=== PATIENT | female | born 1980 | race American Indian/Alaskan Native ===

== ENCOUNTER 2020-11-16 07:03 | Emergency (ER) | payer SELFPAY ==
[2020-11-16] MEDS ORDERED: KETOROLAC 30 MG/1 ML INJ IV ONE (07:08)
--- NOTE | 2020-11-16 07:22 | Emergency Department Report ---
ED Seizure HPI - General Stated Complaint: POSS SZ Time Seen by Provider: 11/16/20 07:08 - History of Present Illness Initial Comments: Patient was brought in by EMS for possible seizure. She states that she really does not recall anything. She remembers going to bed last night. She does not remember getting up this morning. She does not remember EMS coming to get her. She does not remember the ambulance ride over here. She states that she is cu rrently having a headache. She states that she has had seizures before. She had been seen by neurology. EEG was obtained. There is no known seizure focus. She was never started on medication. She is not really sure if she had a seizure today or not. There has been no recent travel or trauma. She has had no cough or congestion. She does not feel ill. EMS states that they were called because the patient thinks that she might of had a seizure. There was no seizure activity witnessed by any family members at home. - Related Data Allergies Allergy/AdvReac Type Severity Reaction Status Date / Time iodine Allergy Anaphylaxis Verified 11/16/20 07:26 sulfamethoxazole Allergy Unknown Verified 11/16/20 07:26 [From Bactrim] trimethoprim [From Bactrim] Allergy Unknown Verified 11/16/20 07:26 ED Review of Systems ROS: Stated complaint: POSS SZ Other details as noted in HPI Comment: All other systems reviewed and negative Constitutional: denies: fever Eyes: denies: eye pain, vision change Respiratory: denies: cough Cardiovascular: denies: chest pain Endocrine: denies: unexplained weight loss Gastrointestinal: denies: abdominal pain Genitourinary: denies: dysuria Musculoskeletal: denies: back pain Neurological: as per HPI, headache Psychiatric: anxiety (Chronically) Hematological/Lymphatic: denies: easy bruising ED Past Medical Hx - Past Medical History Previous Medical History?: Yes Additional medical history: Anxiety and seizure - Family History Family history: other (Negative for seizure) ED Physical Exam - General Limitations: No Limitations, Other (Pulse ox was noted and normal. Is not hypoxic.) General appearance: alert, in no apparent distress - Head Head exam: Present: atraumatic, normocephalic, normal inspection - Eye Eye exam: Present: normal appearance, PERRL, EOMI. Absent: scleral icterus - ENT ENT exam: Present: normal orophraynx, normal external ear exam - Neck Neck exam: Present: normal inspection. Absent: meningismus - Respiratory Respiratory exam: Present: normal lung sounds bilaterally. Absent: respiratory distress - Cardiovascular Cardiovascular Exam: Present: regular rate, normal rhythm - GI/Abdominal GI/Abdominal exam: Present: soft. Absent: distended, tenderness - Extremities Exam Extremities exam: Present: normal capillary refill. Absent: joint swelling - Back Exam Back exam: Absent: CVA tenderness (R), CVA tenderness (L) - Neurological Exam Neurological exam: Present: alert, oriented X3, CN II-XII intact, normal gait, r eflexes normal. Absent: motor sensory deficit - Psychiatric Psychiatric exam: Present: normal affect, normal mood - Skin Skin exam: Present: warm, dry ED Course Vital Signs 11/16/20 11/16/20 11/16/20 07:18 08:48 10:36 Temperature 97.9 F Pulse Rate 87 80 88 Respiratory 19 19 19 Rate Blood Pressure 134/88 Blood Pressure 124/89 121/88 [Left] O2 Sat by Pulse 100 99 99 Oximetry - Reevaluation(s) Reevaluation #1: 11/16/20 07:15 EMS was met. Labs ordered. Reevaluation #2: 11/16/20 08:53 Labs are pending. Reevaluation #3: 11/16/20 10:59 Labs are noted and the patient was discharged. ED Medical Decision Making - Lab Data Result diagrams: 11/16/20 08:53 - Medical Decision Making Patient presented for possible seizure. At this time, there has been no seizure activity noted. She has not been on medication. She has had an outpatient work-up including EEG. I do not believe she needs inpatient work-up at this time. I do believe repeat evaluation as an outpatient would be appropriate. She is amenable to this. We have discussed lifestyle changes due to the fact that this could have been a seizure which would include limiting driving as well as swimming without any kind of supervision. She does not have any focal neurologic deficit at this time. I do not believe any imaging is warranted. Critical Care Time: No Critical care attestation.: If time is entered above; I have spent that time in minutes in the direct care of this critically ill patient, excluding procedure time. ED Disposition Clinical Impression: Transient alteration of awareness Disposition: 01 HOME / SELF CARE / HOMELESS Is pt being admited?: No Condition: Stable Instructions: Seizure, Adult Additional Instructions: Drink plenty water. Return for problems. Follow-up with your regular doctor for recheck and further management. Do not drive until released by a regular doctor. Referrals: PRIMARY CARE, [Primary Care Provider] - 3-5 Days ИВАН SIERRA MD [Staff Physician] - 3-5 Days
[2020-11-16] MEDS ORDERED: ADENOSINE 6 MG/2 ML INJ ONE (08:15)
[2020-11-16 08:38] LABS: BUN/Creatinine Ratio TNR; Blood Urea Nitrogen TNR mg/dL (7-17); Calcium TNR mg/dL (8.4-10.2); Hemolysis Index TNR
--- NOTE | 2020-11-16 08:40 | XRay Report ---
CHEST 2 VIEWS INDICATION: cough. COMPARISON: None FINDINGS: Support devices: None. Heart: Within normal limits. Lungs/pleura: No acute air space or interstitial disease. No pneumothorax. Additional findings: None. IMPRESSION: No acute findings. Signer Name: Bonifacio Pike Jr, MD Signed: 11/16/2020 8:36 AM Workstation Name: [id number]
[2020-11-16 09:50] LABS: Blood Urea Nitrogen 7 mg/dL (7-17); Calcium 9.4 mg/dL (8.4-10.2); Hemolysis Index 3
[2020-11-16 10:10] LABS: BUN/Creatinine Ratio 14
[2020-11-16 10:36] VITALS: BP 121/88
== END 2020-11-16 10:36 | disposition home or self-care (01) ==
LOC: ED 07:03
DX: R40.4 Transient alteration of awareness (principal); R56.9 Unspecified convulsions; R51.9 Headache, unspecified; F41.9 Anxiety disorder, unspecified; Z79.899 Other long term (current) drug therapy
CPT/HCPCS: 36415; 71046; 80048; 96374; 99284; J1885; J0153

== ENCOUNTER 2020-12-22 21:15 | Emergency (ER) | payer MEDICAID ==
[2020-12-22] MEDS ORDERED: ACETAMINOPHEN 500 MG TAB PO ONE (22:35)
[2020-12-22 23:54] LABS: Alanine Aminotransferase 7 units/L (7-56); Albumin 4.3 g/dL (3.9-5); Blood Urea Nitrogen 6 mg/dL (7-17); Calcium 8.4 mg/dL (8.4-10.2); Hemolysis Index 7
[2020-12-22 23:57] LABS: BUN/Creatinine Ratio 12
[2020-12-23 00:01] LABS: Basophils # (Auto) 0.1 K/mm3 (0.0-0.1); Basophils % (Auto) 0.7 % (0.0-1.8); Eosinophils # (Auto) 0.1 K/mm3 (0.0-0.4); Eosinophils % (Auto) 1.3 % (0.0-4.3); Hemoglobin 12.4 gm/dl (10.1-14.3); Lymphocytes # (Auto) 2.2 K/mm3 (1.2-5.4); Lymphocytes % (Auto) 30.6 % (13.4-35.0); Mean Corpuscular HGB Conc 34 % (30-34); Mean Corpuscular Volume 95 fl (79-97); Monocytes # (Auto) 0.5 K/mm3 (0.0-0.8); Monocytes % (Auto) 6.4 % (0.0-7.3); Platelet Count 274 K/mm3 (140-440); Red Blood Count 3.88 M/mm3 (3.65-5.03); Red Cell Distribution Width 12.9 % (13.2-15.2)
--- NOTE | 2020-12-23 00:41 | XRay Report ---
CHEST 2 VIEWS INDICATION / CLINICAL INFORMATION: Pain - chest. COMPARISON: 11/16/20 FINDINGS: SUPPORT DEVICES: None. HEART / MEDIASTINUM: No significant abnormality. LUNGS / PLEURA: No significant pulmonary or pleural abnormality. No pneumothorax. ADDITIONAL FINDINGS: No significant additional findings. IMPRESSION: 1. No acute findings. No change. Signer Name: Bobby Braden MD Signed: 12/23/2020 12:37 AM Workstation Name: [id number]
[2020-12-23 01:00] LABS: Bilirubin,Urine NEG (Negative); Blood,Urine MOD (Negative); Color,Urine Yellow (Yellow); Mucus,Urine 3+ /HPF
--- NOTE | 2020-12-23 01:52 | Emergency Department Report ---
ED Abdominal Pain HPI - General Chief Complaint: Abdominal Pain Stated Complaint: ABDOMINAL PAIN/CHEST PAIN Source: patient Mode of arrival: Ambulatory Limitations: No Limitations - History of Present Illness Initial Comments: Patient is a [id number] 40-year-old -[place] female with a history of anxiety and depression and seizures who present to the ED with complaint of ac bois forte onset persistent diffuse low abdominal pain, heavy vaginal bleeding for the last 2 months. Patient states that the pain in the lower abdomen also radiates to her low back and causes chest pressure especially in the last 4 days. Patient states that her cycle usually lasts 5 days but it has been persistent for the last 2 months, with occasional heaviness whereby she has to use multiple pads. Patient states that she is not on any control. Patient denies dizziness, syncope, shortness of breath, vaginal discharge, urinary frequency and urgency, dysuria, nausea and vomiting or diarrhea, low back pain, numbness and tingling or weakness of upper and lower extremities bilaterally or change in vision and headache. MD Complaint: abdominal pain, other (Heavy vaginal bleeding) -: Gradual, month(s) (2) Location: diffuse Radiation: none Migration to: no migration Severity: severe Severity scale (0 -10): 10 Quality: cramping, aching, sharp Consistency: constant Improves With: nothing Worsens With: movement Context: other (Heavy vaginal bleeding for 2 months) Associated Symptoms: denies other symptoms - Related Data LMP (females 10-50): 2 months Previous Rx's Medication Instructions Recorded Last Taken Type Famotidine [Pepcid] 20 mg PO BID #60 tablet 12/23/20 Unknown Rx Ibuprofen [Motrin] 800 mg PO Q8HR PRN #30 tablet 12/23/20 Unknown Rx Ondansetron [Zofran Odt] 4 mg PO Q6HR PRN #15 tab.rapdis 12/23/20 Unknown Rx medroxyPROGESTERone ACETATE 10 mg PO DAILY #10 tablet 12/23/20 Unknown Rx [Provera] Allergies Allergy/AdvReac Type Severity Reaction Status Date / Time iodine Allergy Anaphylaxis Verified 11/16/20 07:26 sulfamethoxazole Allergy Unknown Verified 11/16/20 07:26 [From Bactrim] trimethoprim [From Bactrim] Allergy Unknown Verified 11/16/20 07:26 ED Review of Systems ROS: Stated complaint: ABDOMINAL PAIN/CHEST PAIN Other details as noted in HPI Constitutional: denies: chills, fever Eyes: denies: eye pain, eye discharge, vision change ENT: denies: ear pain, throat pain Respiratory: denies: cough, shortness of breath, wheezing Cardiovascular: denies: chest pain, palpitations Endocrine: no symptoms reported Gastrointestinal: abdominal pain. denies: nausea, vomiting, diarrhea Genitourinary: abnormal menses (Vaginal bleeding). denies: urgency, dysuria, discharge Musculoskeletal: back pain (Low back pain). denies: joint swelling, arthralgia Skin: denies: rash, lesions Neurological: denies: headache, weakness, paresthesias Psychiatric: denies: anxiety, depression Hematological/Lymphatic: denies: easy bleeding, easy bruising ED Past Medical Hx - Past Medical History Previous Medical History?: Yes Additional medical history: Anxiety and seizure - Surgical History Past Surgical History?: No - Social History Smoking Status: Never Smoker Substance Use Type: None - Medications Home Medications: Home Medications Medication Instructions Recorded Confirmed Last Taken Type Famotidine [Pepcid] 20 mg PO BID #60 tablet 12/23/20 Unknown Rx Ibuprofen [Motrin] 800 mg PO Q8HR PRN #30 tablet 12/23/20 Unknown Rx Ondansetron [Zofran Odt] 4 mg PO Q6HR PRN #15 tab.rapdis 12/23/20 Unknown Rx medroxyPROGESTERone ACETATE 10 mg PO DAILY #10 tablet 12/23/20 Unknown Rx [Provera] ED Physical Exam - General Limitations: No Limitations General appearance: alert, in no apparent distress - Head Head exam: Present: atraumatic, normocephalic, normal inspection - Eye Eye exam: Present: normal appearance, PERRL, EOMI Pupils: Present: normal accommodation - ENT ENT exam: Present: normal exam, normal orophraynx, mucous membranes moist, TM's normal bilaterally, normal external ear exam - Neck Neck exam: Present: normal inspection, full ROM - Respiratory Respiratory exam: Present: normal lung sounds bilaterally. Absent: respiratory distress, wheezes, rales, rhonchi, chest wall tenderness, accessory muscle use, decreased breath sounds - Cardiovascular Cardiovascular Exam: Present: regular rate, normal rhythm, normal heart sounds. Absent: systolic murmur, diastolic murmur, rubs, gallop - GI/Abdominal GI/Abdominal exam: Present: soft, tenderness (Palpable diffuse mild abdominal tenderness), normal bowel sounds. Absent: guarding, rebound, hyperactive bowel sounds, hypoactive bowel sounds, mass - Bi-manual exam: Present: other (Pelvic exam deferred at this time) - Extremities Exam Extremities exam: Present: normal inspection, full ROM, normal capillary refill - Back Exam Back exam: Present: normal inspection, full ROM. Absent: tenderness, CVA tenderness (R), CVA tenderness (L), muscle spasm, paraspinal tenderness, vertebral tenderness - Neurological Exam Neurological exam: Present: alert, oriented X3, CN II-XII intact, normal gait, reflexes normal - Psychiatric Psychiatric exam: Present: normal affect, normal mood - Skin Skin exam: Present: warm, dry, intact, normal color. Absent: rash ED Course Vital Signs 12/22/20 12/22/20 22:25 23:28 Temperature 98.3 F Pulse Rate 82 Respiratory 14 18 Rate Blood Pressure 107/61 O2 Sat by Pulse 99 Oximetry ED Medical Decision Making - Lab Data Result diagrams: 12/22/20 22:57 12/22/20 22:57 - Radiology Data Radiology results: report reviewed, [place] [address] XRay Report Signed Patient: JG GALVAN MR#: [id number] : 1980 Acct:[id number] Age/Sex: 40 / F ADM Date: 12/22/20 Loc: ED Attending Dr: Ordering Physician: ANDREIA TOWNSEND Date of Service: 12/22/20 Procedure(s): XR chest routine 2V Accession Number(s): [id number] cc: ANDREIA TOWNSEND Fluoro Time In Minutes: CHEST 2 VIEWS INDICATION / CLINICAL INFORMATION: Pain - chest. COMPARISON: 11/16/20 FINDINGS: SUPPORT DEVICES: None. HEART / MEDIASTINUM: No significant abnormality. LUNGS / PLEURA: No significant pulmonary or pleural abnormality. No pneumothorax. ADDITIONAL FINDINGS: No significant additional findings. IMPRESSION: 1. No acute findings. No change. Signer Name: Bobby Braden MD Signed: 12/23/2020 12:37 AM Workstation Name: [id number] Transcribed By: DT Dictated By: Bobby Braden MD Electronically Authenticated By: Bobby Braden MD Signed Date/Time: 12/23/2036 DD/ TD/TT: - Medical Decision Making This is a [id number] 40-year-old -[place] female with a history of anxiety and depression and seizures who present to the ED with complaint of acute onset persistent diffuse low abdominal pain, heavy vaginal bleeding for the last 2 months. Patient states that the pain in the lower abdomen also radiates to her low back and causes chest pressure especially in the last 4 days. Patient states that her cycle usually lasts 5 days but it has been persistent for the last 2 months, with occasional heaviness whereby she has to use multiple pads. Patient states that she is not on any control. In the ED, patient is alert and oriented x3 and is not in any distress. Patient is hemodynamically stable. Chest x-ray showed no acute cardiopulmonary abnormalities or pn eumonitis. Lab test results were reviewed and are all nonactionable. Patient was treated with for pain with Tylenol in the ED. On reevaluation, patient felt better, patient was discharged home on pain medications, antiemetics as well as antacids and also given a prescription of medroxyprogesterone 10 mg to be taken once a day for 10 days. Patient was advised to follow-up with the [facility] physician Dr. Saint Muller in 3 to 5 days for reevaluation. Patient is advised return to the ED immediately if symptoms get worse. - Differential Diagnosis UTI; dysmenorrhea; menometrorrhagia; ovarian cyst; GERD; Critical care attestation.: If time is entered above; I have spent that time in minutes in the direct care of this critically ill patient, excluding procedure time. ED Disposition Clinical Impression: Severe dysmenorrhea, Menorrhagia with irregular cycle Abdominal pain Qualifiers: Abdominal location: lower abdomen, unspecified Qualified Code(s): R10.30 - Lower abdominal pain, unspecified Disposition: 01 HOME / SELF CARE / HOMELESS Is pt being admited?: No Does the pt Need Aspirin: No Condition: Stable Instructions: Abdominal Pain (ED), Abdominal Pain, Adult, [id number], Menorrhagia, [id number], Dysmenorrhea, [id number], Abnormal Uterine Bleeding, [id number] Additional Instructions: All lab test results were reviewed and are all nonactionable. Your symptoms are likely due to menstrual cramps. Therefore take medications with food, drink plenty fluids and follow-up with the [facility] physician Dr. Saint Muller in 3 to 5 days for reevaluation. Return to the ED immediately if symptoms get worse. Prescriptions: Ibuprofen [Motrin] 800 mg PO Q8HR PRN #30 tablet PRN Reason: Pain , Severe (7-10) Famotidine [Pepcid] 20 mg PO BID #60 tablet medroxyPROGESTERone ACETATE [Provera] 10 mg PO DAILY #10 tablet Ondansetron [Zofran Odt] 4 mg PO Q6HR PRN #15 tab.rapdis PRN Reason: Nausea Referrals: JOSLYN GRANADOS MD [Staff Physician] - 3-5 Days Forms: Work/School Release Form(ED) Time of Disposition: 01:53 Print Language: TAJIK
[2020-12-23 02:39] VITALS: BP 100/62
== END 2020-12-23 02:42 | disposition home or self-care (01) ==
LOC: ED 21:15
DX: N94.6 Dysmenorrhea, unspecified (principal); R10.30 Lower abdominal pain, unspecified; N92.0 Excessive and frequent menstruation with regular cycle; M54.50 Low back pain, unspecified; R07.89 Other chest pain; Z91.018 Allergy to other foods; Z88.1 Allergy status to other antibiotic agents
CPT/HCPCS: 36415; 71046; 80053; 81001; 84484; 84703; 85025; 99284

== ENCOUNTER 2021-03-05 12:15 | Emergency (ER) | payer MEDICAID ==
[2021-03-05 12:45] VITALS: BP 114/70
== END 2021-03-05 14:07 | disposition left against medical advice (07) ==
LOC: ED 12:15
DX: R10.9 Unspecified abdominal pain (principal); Z53.21 Procedure and treatment not carried out due to patient leaving prior to being seen by health care provider